=== PATIENT | female | born 1990 | race Hispanic/Latino ===

== ENCOUNTER → 2020-03-08 | Emergency (ER) | payer OTHER ==
[~2020-03-08] VITALS: Ht 152.4 cm; Wt 79.4 kg
[~2020-03-08] MED LIST: SODIUM CHLORIDE 0.9% 250ML 250 ML IV ONE; SODIUM CHLORIDE 0.9% 250ML 250 ML ONE
--- OUTSIDE RECORDS SUMMARY | 2020-03-08 16:48 | XMS REPORT | Clinical Summary ---
Author Author [facility] Organization 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 Active topiramate (TOPAMAX) 50 Take 2 60 tablet 6 mg tabletIndications: tablets by 4 Migraine, Headache(784.0) mouth at bedtime nightly. Active citalopram (CELEXA) 20 mg Take 1 tablet 90 tablet 1 tabletIndications: by mouth 4 Anxiety disorder daily. Active omeprazole (PRILOSEC) 20 Take 2 180 capsule 1 0 mg delayed release capsules by 4 capsuleIndications: mouth every Dyspepsia morning (before breakfast). Active naproxen (NAPROSYN) 500 Take 1 tablet 30 tablet 3 mg tabletIndications: by mouth 2 5 Migraine, Headache(784.0) times daily as needed for Pain or Fever. Active ergocalciferol (VITAMIN Take 1 12 capsule 1 D2) 50,000 unit capsule by 5 capsuleIndications: mouth weekly. Vitamin D deficiency Active methylPREDNISolone Follow 21 tablet 0 / 01 (MEDROL, NEW,) 4 mg dose directions 6 packIndications: from dose Arthralgia of multiple pack and/or joints instructions from . Active traMADol (ULTRAM) 50 mg Take 1 tablet 60 tablet 1 tabletIndications: by mouth 6 Arthralgia of multiple every 6 hours joints as needed for Pain. Active dexlansoprazole Take 1 30 capsule 1 (DEXILANT) 30 mg delayed capsule by 6 release mouth daily. capsuleIndications: Gastritis Active predniSONE (DELTASONE) 20 TAKE 2 10 tablet 0 01/10/201 mg tabletIndications: SLE TABLETS for 2 6 (systemic lupus days followed erythematosus) by 20 mg daily for 5 days and 5 mg for 5 days. Active predniSONE (DELTASONE) 5 Take 1 tablet 14 tablet 0 03/24/201 mg tabletIndications: ANSELMO by mouth 6 positive, Arthralgia of daily. multiple joints Active Problems Problem Noted Date Arthralgia of multiple joints 11/29/2015 Vitamin D deficiency 07/19/2015 Family History Medical History Relation Name Comments Cancer Maternal Uterine Cancer Grandmother Cancer Mother Breast Cancer Heart Mother Relation Name Status Comments Maternal Grandmother Alive Mother Alive Social History Date Tobacco Use Types Packs/Day Years Used Never Smoker Smokeless Tobacco: Never Used Comments: non smoker Drinks/Week oz/Week Comments Alcohol Use No Sex Assigned at Date Recorded Not on file Industry Job Start Date Occupation Not on file Not on file Not on file Travel End Travel History Travel Start No recent travel history available. Last Filed Vital Signs Not on file Plan of Treatment Health Maintenance Due Date Last Done Comments Cervical Cancer Scrn (3 04/07/2017 04/07/2014 Yrs) Results Not on fileafter 03/08/2019 Insurance Type Payer Benefit Subscriber ID Effective Phone Address Plan / Dates Group [email or web address] xxxxxxxxxx 2016-P [phone] [address] [place] [address]
--- OUTSIDE RECORDS SUMMARY | 2020-03-08 16:49 | XMS REPORT | Continuity of Care Document ---
Author Author [facility] t Organization [facility] Address [address] [place] [address] Phone Unavailable Care Team Providers Care Java Application Developer Name Role Phone Pcp, No PCP Unavailable ISRA CAMPBELL M.D. Attphys Unavailable Martín KELLEY, Mich Salomon Attphys Machelle KELLEY, Kwaku Perez Attphys Vivian KELLEY, Andi Celis Attphys 1.5, Avis Angel [facility] Attphys Unavailable ALEXIA PANDA M.D. Attphys Unavailable Payers Payer Name Policy Type Policy Number Effective Date Expiration Date S shirley VIDES MCR REPLACEMENTMOLINA DUAL OPTION S STARPLUS [id number] xxxxxxxxxx 2016 00:00:00 Armani Johnson [id number]-PresentExchange xxxxxxxxxxx 20 20-10-00 00:00:00 [facility] [facility] Problems Condition Name Condition Details Condition Category Status Onset Date Resolution Date Last Treatment Date Treating Clinician Comments Source Arthralgia of multiple joints Arthralgia of multiple joints Disease Active 2015-11-29 00:00:00 [place] mina Vitamin D deficiency Vitamin D deficiency Disease Active 00:00:00 [facility] Asthma Asthma Disease Active 2014-07-21 00:00:00 [facility] Atypical chest pain Atypical chest pain Disease Active 2014-07-21 00:00 :00 [facility] Campose r Left sided abdominal pain Left sided abdominal pain Disease Ac tive 2014-07-21 00:00:00 [facility] Syncope Syncope Disease Active 2014-07-20 00:00:00 [facility] History of asthma History of asthma Problem Resolved [facility] History of depression History of depression Problem Resolved [facility] History of hypertension History of hypertension Problem Resolved [facility] History of kidney disease History of kidney disease Problem Resolved [facility] History of Lupus History of Lupus Problem Resolved [facility] History of rheumatoid arthritis History of rheumatoid arthritis Problem Resolved [facility] Gastritis Gastritis Problem Active [facility] Esophagitis Esophagitis Problem Active [facility] Irritable bowel syndrome Irritable bowel syndrome Problem Active [facility] Acute left ankle pain Acute left ankle pain Problem Active [facility] Pelvic congestion syndrome Pelvic congestion syndrome Problem Active [facility] Allergies, Adverse Reactions, Alerts This patient has no known allergies or adverse reactions. Family History Family Member Diagnosis Comments Start Date Stop Date Source Mother Family history of diabetes mellitus [facility] Mother Family history of cardiac disorder [facility] Mother Family history of hypertension [facility] Father Family history of diabetes mellitus [facility] Father Family history of cardiac disorder [facility] Father Family history of hypertension [facility] Unknown Family Member Family history of colon cancer Maternal Relativ es [facility] aunt Family history of malignant neoplasm of cervix uteri [facility] Maternal grandmother [facility] Natural mother [facility] Natural mother Heart [facility] Social History Social Habit Start Date Stop Date Quantity Comments Source Exposure to SARS-CoV-2 (event) Not sure [facility] Sex Assigned [facility] Alcohol intake 2016-01-25 00:00:00 2016-01-25 00:00:00 [facility] Tobacco Comment 2014-06-08 00:00:00 2014-06-08 00:00:00 non smoker [facility] Smoking Status Start Date Stop Date Source Never smoker [facility] Medications Ordered Medication Name Filled Medication Name Start Date Stop Da te Current Medication? Ordering Clinician Indication Dosage Frequency Signature (SIG) Comments Components Source tacrolimus (PROGRAF) 1 MG capsule 2020-02-19 18:47:14 Yes 1mg Q.5D Take 1 mg by mouth 2 (two) times a day. Clement Johnson LISINOPRIL ORAL 2020-02-19 18:44:44 Yes Take by mouth. Armani Johnson ondansetron (ZOFRAN) 4 MG tablet 2020-02-19 00:00:00 Yes 4mg Q8H Take 1 tablet (4 mg total) by mouth every 8 (eight) hours as needed for nausea or vomiting for up to 20 doses. Armani hoffmann sucralfate (Carafate) 100 mg/mL suspension 02-18 00:00:00 2020-03-20 23:59:00 Yes 1g Q.25D Take 10 mL (1 g total) by mouth 4 (four) times a day for 30 days. Armani Johnson ondansetron (ZOFRAN) 4 MG tablet 2020-01-21 00:00:00 2020-01 00:00:00 No 4mg Q8H Take 1 tablet (4 mg total) by mouth every 8 (eight) hours as needed for nausea or vomiting for up to 20 doses. Mateus Johnson acetaminophen-codeine (TYLENOL WITH CODEINE #3) 300-30 mg pe r tablet 2020-01-21 00:00:00 2020-01-31 23:59:00 No acute pain 1{tbl} Q6H Take 1-2 tablets by mouth every 6 (six) hours as needed for moderate pain for up to 10 days .acute pain. Armani Johnson cefuroxime (CEFTIN) 500 MG tablet 2020-01-21 00:00:00 2019 23:59:00 No 500mg Q.5D Take 1 tablet (5 00 mg total) by mouth 2 (two) times a day for 6 days. Armani Johnson hydroxychloroquine (Plaquenil) 200 mg tablet 2018-12-26 00:00:00 Yes Take by mouth. Armani cheney predniSONE (DELTASONE) 5 mg tablet 2016-03-24 00:00:00 Yes Arthralgia of multiple joints 5mg QD Take 1 tablet by mouth daily. [facility] predniSONE (DELTASONE) 20 mg tablet 2016-01-11 00:00:00 Yes SLE (systemic lupus erythematosus) TAKE 2 TABLETS for 2 days followed by 20 mg daily for 5 days and 5 mg for 5 days. [facility] dexlansoprazole (DEXILANT) 30 mg delayed release capsule 2015-12-27 00:00:00 Yes Gastritis 30mg QD Take 1 capsule by mouth daily. [facility] methylPREDNISolone (MEDROL DOSEPAK) 4 mg tablet 2015-11-29 00:00 :00 Yes Follow directions from dose pack and/or instructions f mojgan RAPHAEL. [place] [facility] methylPREDNISolone (MEDROL, NEW,) 4 mg dose pack 2015-11-29 00:00:00 Yes Arthralgia of multiple joints Follow dir ections from dose pack and/or instructions from . [facility] traMADol (ULTRAM) 50 mg tablet 2015-11-29 00:00:00 Yes Arthralgia of multiple joints 50mg Take 1 tablet by mouth every 6 h ours as needed for Pain. [facility] ergocalciferol (VITAMIN D2) 50,000 unit capsule 2015-07-19 0 0:00:00 Yes Vitamin D deficiency 62721F Take 1 capsule by mouth weekly. [facility] naproxen (NAPROSYN) 500 mg tablet 2015-06-28 00:00:00 Ye s Headache(784.0) 500mg Take 1 tablet by mouth 2 times daily as needed for Kristian n or Fever. [facility] omeprazole (PRILOSEC) 20 mg delayed release capsule 06-08 00:00:00 Yes Dyspepsia 40mg QD Take 2 capsules by mouth every morni ng (before breakfast). [facility] citalopram (CELEXA) 20 mg tablet 2014-01-23 00:00:00 Yes Anxiety disorder 20mg QD Take 1 tablet by mouth daily. [facility] topiramate (TOPAMAX) 50 mg tablet 2013-12-30 00:00:00 Ye s Headache(784.0) 100mg Take 2 tablets by mouth at bedtime nightly. [facility] ALBUTEROL IN 2013-12-12 06:01:27 Yes Inhale by mouth. [facility] predniSONE 10 MG Oral Tablet predniSONE 10 MG Oral Tablet Yes [facility] Plaquenil 200 MG Oral Tablet Plaquenil 200 MG Oral Tablet Yes [facility] Tylenol CAPS Tylenol CAPS Yes [facility] Tacrolimus 1 MG Oral Capsule Tacrolimus 1 MG Oral Capsule Yes [facility] Omeprazole 40 MG Oral Capsule Delayed Release Omeprazo le 40 MG Oral Capsule Delayed Release Yes [facility] Lisinopril TABS Lisinopril TABS Yes [facility] Immunizations Ordered Immunization Name Filled Immunization Name Date Status Comments Source Influenza TIV (IM) 2014-07-21 00:00:00 Completed [facility] Vital Signs Vital Name Observation Time Observation Value Comments Source Systolic blood pressure 2020-02-27 10:55:00 143 mm[Hg] Loca tion: RUE; Position: Sitting [facility] Diastolic blood pressure 2020-02-27 10:55:00 95 mm[Hg] Loc ation: RUE; Position: Sitting [facility] Body height 2020-02-27 10:55:00 61 [in_us] [facility] Weight 2020-02-27 10:55:00 174 [lb_av] [facility] Body mass index (BMI) [Ratio] 2020-02-27 10:55:00 32.88 kg/m2 [facility] Body temperature 2020-02-27 10:55:00 97.6 [degF] Method: Oral [facility] Heart Rate 2020-02-27 10:55:00 121 /min [facility] Systolic blood pressure 2020-02-19 23:00:00 118 mm[Hg] Armani Glassist Diastolic blood pressure 2020-02-19 23:00:00 72 mm[Hg] Armani Glassist Heart rate 2020-02-19 23:00:00 97 /min Armani Glassist Respiratory rate 2020-02-19 23:00:00 15 /min Brooke Johnson Oxygen saturation in Arterial blood by Pulse oximetry 02-18 23:00:00 99 /min Armani Glassist Body temperature 2020-02-19 18:10:00 36.56 Maria Elena [facility] BP Systolic 2019-02-20 16:23:00 129 mm[Hg] [facility] BP Diastolic 2019-02-20 16:23:00 88 mm[Hg] [facility] Height 2019-02-20 16:23:00 61 [in_us] [facility] Weight 2019-02-20 16:23:00 170 [lb_av] [facility] Body Mass Index Calculated 2019-02-20 16:23:00 32.12 kg/m2 [facility] Temperature 2019-02-20 16:23:00 98.5 [degF] [facility] Heart Rate 2019-02-20 16:23:00 112 /min [facility] Respiration Rate 2019-02-20 16:23:00 18 /min [facility] Procedures Procedure Date / Time Performed Performing Clinician Sourc e US GALLBLADDER 2020-02-19 22:40:15 Zev Rosado OCCULT BLOOD, STOOL 2020-02-19 19:48:00 Zev Rosado [facility] URINE CULTURE 2020-02-19 19:48:00 Zev Rosado URINALYSIS SCREEN AND MICROSCOPY, WITH REFLEX TO CULTURE 19:48:00 Zev Rosado HC COMPLETE BLD COUNT W/AUTO DIFF 2020-02-19 18:57:00 Cristi Rosado COMPREHENSIVE METABOLIC PANEL 2020-02-19 18:57:00 Zev Rosado LIPASE LEVEL 2020-02-19 18:57:00 Zev Rosado HCG QUALITATIVE, SERUM SCREEN 2020-02-19 18:57:00 Zev Rosado TYPE AND SCREEN 2020-02-19 18:57:00 Zev Rosado ESTIMATED GFR 2020-02-19 18:57:[address] RENAL STONE PROTOCOL 2020-01-21 17:47:52 Chris Carty URINE CULTURE 2020-01-21 17:37:00 Chris Carty ethodist HC COMPLETE BLD COUNT W/AUTO DIFF 2020-01-21 17:28:00 Tonie Carty COMPREHENSIVE METABOLIC PANEL 2020-01-21 17:28:00 Geovanni Carty LIPASE LEVEL 2020-01-21 17:28:00 Chris Carty ethodist ESTIMATED GFR 2020-01-21 17:28:00 Chris Carty ethodist SMEAR REVIEW 2020-01-21 17:28:00 Chris Carty ethodist URINALYSIS 2020-01-21 17:13:00 Chris Carty ethodist HCG QUALITATIVE, URINE SCREEN 2020-01-21 17:13:00 Geovanni Carty MR BRAIN WITH & WITHOUT IV CONTRAST 2019-03-31 19:09:00 Vimal Stout [facility] [U] XRAY ANKLE MIN 3 VWS LEFT [id number] 2019-03-07 00:00:00 [facility] [U] XRAY FOOT MIN 3 VWS LEFT [id number] 2019-02-19 00:00:00 [facility] History of section [facility] History of Kidney surgery [facility] Plan of Care Planned Activity Planned Date Details Comments Source Future Scheduled Test 2020-05-01 00:00:00 INFLUENZA VACCINE [code = INFLUENZA VACCINE] [facility] Future Scheduled Test 2017-04-07 00:00:00 Cervical Cancer Sc rn (3 Yrs) [code = Cervical Cancer Scrn (3 Yrs)] [facility] Future Scheduled Test 2012-02-10 00:00:00 Screening for merlin gnant neoplasm of cervix (procedure) [code = 082916949] [facility] En[facility] Start Date/Time End Date/Time Encounter Type Admission Type [facility] Care Department Encounter ID Source 2020-02-27 10:30:00 2020-02-27 10:30:00 Appointment; ISRA CAMPBELL M .D. KATZ, ALLAN, M.D. [facility] [id number] [facility] 2020-02-21 12:16:00 2020-02-21 12:16:00 Emergency E BL [facility] [id number] BL 2020-02-19 00:00:00 2020-02-19 00:00:00 Emergency ALEXIA HAWLEY [facility] [id number] Armani Johnson 2020-01-21 00:00:00 2020-01-21 00:00:00 Emergency MACHELLEGEOVANNI Hari [facility] [id number] Armani Johnson 2019-07-01 07:23:00 2019-07-01 07:23:00 Outpatient [facility] [id number] [facility] 2019-03-11 16:30:00 2019-03-11 16:30:00 Appointment; STEFANIE PANDA M.D. HARVIN, WILLIAM, M.D. [facility] Orthopedics [facility] [id number] [facility] 2019-02-20 15:45:00 2019-02-20 15:45:00 Appointment; STEFANIE PANDA M.D. HARVIN, WILLIAM, M.D. [facility] Orthopedic [id number] [facility] 2019-02-05 12:50:00 2019-02-05 12:50:00 Emergency E [facility] [id number] [facility] Results Test Description Test Time Test Comments Results Result Comments Source US Gallbladder 2020-02-19 22:43:02 Interface , Radiology Results 02/19/2020 10:46 PM CDTEXAMINATION: US GALLBLADDERCLINICAL HISTORY: Epigastric painCOMPARISON: None.FINDINGS:Gallbladder: The gallbladder is without evidence of calculi. The gallbladder wall is not thickened and there is no pericholecystic fluid.CBD: 3 mm diameter , within normal limits.Portal vein: The portal vein demonstrates normal hepatopedal flow. The portal vein measures 9 mm diameter.IMPRESSION:Normal gallbladder ultrasound examination.[facility]-[id number] [facility] Urine culture 2020-02-19 20:22:15 Test Item Urine culture (test code = 6400293) SEE COMMENT Bacteriuria screen negative. [place] MethodistUrinalysis screen and microscopy, with reflex to culture 2020-02-19 20:22:14* Test Item Value Reference Range Interpretation Comments Specimen site (test code = 8936108) Clean catch Color, UA (test code = 5778-6) Yellow Appearance, UA (test code = 5767-9) Clear Specific gravity, UA (test code = 5811-5) 1.023 1.001-1.030 pH, UA (test code = 5803-2) 6.0 5.0-9.0 Protein, UA (test code = 73416-7) 2+ Negative A Glucose, UA (test code = 71689-3) Negative Negative Ketones, UA (test code = 2514-8) Negative Negative Bilirubin, UA (test code = 5770-3) Negative Negative Blood, UA (test code = 5794-3) Negative Negative Nitrite, UA (test code = 5802-4) Negative Negative Urobilinogen, UA (test code = 62904-5) <2.0 <2.0 E.U./dL Leukocyte esterase, UA (test code = 5799-2) Negative Negative Epithelial cells, UA (test code = 5787-7) 4 /HPF WBC, UA (test code = 5821-4) 3 0- 4 /HPF RBC, UA (test code = 34641-5) 3 0- 5 /HPF Bacteria, UA (test code = 57418-1) Few None seen Yeast, UA (test code = 51656-7) None seen Yeast with pseudohyphae, UA (test code = 02804-2) None seen Lab Interpretation (test code = 38319-7) Abnormal [facility] MethodistOccult blood, [id number] 20:20:46* Test Item Value Reference Range Interpretation Comments Occult blood, stool (test code = 2334-1) Negative for occult blood. Specimen InformationSpecimen Source: StoolSpecimen Site: Nonpreserved [place] MethodistType and [id number] 20:03:00* Test Item Value Reference Range Interpretation Comments ABO grouping (test code = 883-9) A Rh type (test code = 86986-1) POS Antibody screen (gel) (test code = 890-4) NEG [facility] MethodistComprehensive metabolic [id number] 19:45:02* Test Item Value Reference Range Interpretation Comments Sodium (test code = 2951-2) 137 135- 148 mEq/L Potassium (test code = 2823-3) 4.1 3.5- 5.0 mEq/L Chloride (test code = 2075-0) 106 98- 112 mEq/L CO2 (test code = 8-9) 21 24- 31 mEq/L L Anion gap (test code = 40104-9) 10@ANIO 7- 15 mEq/L BUN (test code = 3094-0) 16 mg/dL 6-20 Creatinine (test code = 2160-0) 0.71 mg/dL 0.5-0.9 Glucose (test code = 2345-7) 97 mg/dL 65-99 Calcium (test code = 41983-1) 9.2 mg/dL 8.3-10.2 Protein (test code = 2885-2) 7.2 g/dL 6.3-8.3 Albumin (test code = 1751-7) 4.1 g/dL 3.5-5 A/G ratio (test code = 1759-0) 1.3 0.7-3.8 Alkaline phosphatase (test code = 6768-6) 50 U/L 35-104 AST (test code = 1920-8) 19 U/L 10-35 ALT (test code = 1742-6) 14 U/L 5-50 Total bilirubin (test code = 1974-2) <0.2 0.2-1.2 Lab Interpretation (test code = 39669-5) Abnormal [place] MethodistLipase [id number] 19:45:02* Test Item Value Reference Range Interpretation Comments Lipase (test code = 3040-3) 114 U/L 13-60 H Lab Interpretation (test code = 05257-0) Abnormal [place] MethodistEstimated [id number] 19:45:02* Test Item Value Reference Range Interpretation Comments Estimated GFR (test code = 5488) >=90 mL/min/1.73 m2 Catergory Units InterpretationG1 >=90 Normal or highG2 60-89 Mildly rbdpatjppY5x 45-59 Mildly to moderately kpggcqslzF2w 30-44 Moderately to severely decreasedG4 15-29 Severely decreasedG5 <15 Kidney failureThe eGFR was calculated using the Chronic Kidney Disease Epidemiology Collaboration (CKD-EPI) equation. Interpretation is based on recommendations of the National Kidney Foundation-Kidney Disease Outcomes Quality Initiative (NKF-KDOQI) published in 2014. [facility] MethodisthCG qualitative, serum [id number] 19:21:33* Test Item Value Reference Range Interpretation Comments hCG qualitative, serum (test code = 2118-8) Negative Sensitivity of HCG test: 25 mIU/mL [place] MethodistCBC with platelet and [id number] 19:10:52* Test Item Value Reference Range Interpretation Comments WBC (test code = 19055-9) 11.4 4.5- 11.0 k/uL H RBC (test code = 85258-8) 4.86 m/uL 4.2-5.5 HGB (test code = 718-7) 8.5 g/dL 12-16 L HCT (test code = 4544-3) 30.9 % 37-47 L MCV (test code = 787-2) 63.6 fL 82-100 L MCH (test code = 785-6) 17.5 pg 27-34 L MCHC (test code = 786-4) 27.5 g/dL 31-37 L RDW - SD (test code = 36984-3) 42.6 fL 37-55 MPV (test code = 79710-6) 8.1 fL 6.9-11 Platelet count (test code = 18680-8) 526 K/uL 150-400 H Nucleated RBC (test code = 20949-8) 0.00 /100 WBC Neutrophils (test code = 12371-4) 82.4 % 39-69 H Lymphocytes (test code = 15916-7) 10.3 % 25-45 L Monocytes (test code = 00301-1) 5.7 % 0-10 Eosinophils (test code = 78700-5) 0.4 % 0-5 Basophils (test code = 13176-7) 0.4 % 0-1 Immature granulocytes (test code = 19255-2) 0.8 % 0-1 Lab Interpretation (test code = 70016-0) Abnormal [place] MethodistSmear [id number] 21:40:14* Test Item Value Reference Range Interpretation Comments Platelet slide review (test code = 36217-8) Increased A Anisocytosis (test code = 702-1) Moderate Polychromasia (test code = 47212-9) Moderate Ovalocytes (test code = 774-0) Moderate Enlarged platelets (test code = 38186-3) Moderate A Lab Interpretation (test code = 81814-3) Abnormal [facility] MethodistCT Renal Stone [id number] 17:53:27Hm Interface, Radiology Results - 01/21/2020 5:56 PM CDTEXAMINATION: CT RENAL STONE PROTOCOLCLINICAL HISTORY: left flank painTECHNIQUE: Multiple axial images of the abdomen were obtained without intravenous contrast with thin sections per renal stone protocol. Sagittal and coronal computerized reformatted images were also obtained. All CT images were acquired using radiation dose lowering technique with automated exposure control and / or iterative reconstruction .COMPARISON: NoIMPRESSION:ABDOMENEvaluation of solid abdominal organs is limite d without IV contrast as this examination was tailored for evaluation of urinary tract calculi.1.Nonobstructive left nephrolithiasis. No other urinary tract lit hiasis, and no obstructive uropathy on either side.2.Mild left renal edema and e nlargement and perinephric stranding, which may indicate a recently passed stone or pyelonephritis. Kidneys otherwise grossly unremarkable without contrast.3.Ga llbladder contracted and not well seen.4.No other incidental findings are detect edPELVIS1.Mild midline abdominal wall diastasis. No free fluid or definite lymph adenopathy detected in the abdomen or pelvis on this limited noncontrast study.2 .Uterus, adnexa and urinary bladder grossly unremarkable.3.Bowel loops grossly u nremarkable without contrast.SUMMARY:Appearance of the left kidney may indicate recently passed stone or pyelonephritis.[facility]-[id number] [facility] qualitative, urine [id number] 17:28:04* Test Item Value Reference Range Interpretation Comments hCG qualitative, urine (test code = 2106-3) Negative Sensitivity of HCG test: 25 mIU/mLNegative test results in patients suspected to be should be retested with a sample obtained 48-72 hours later, or by performing a quantitative assay. [place] [id number] 17:21:35* Test Item Value Reference Range Interpretation Comments Glucose, UA (test code = 36768-1) Negative Negative Bilirubin, UA (test code = 5770-3) Negative Negative Ketones, UA (test code = 2514-8) Negative Negative Specific gravity, UA (test code = 5811-5) =>1.030 1.001-1.035 Blood, UA (test code = 5794-3) Small Negative A pH, UA (test code = 5803-2) 7.0 5.0-8.5 Protein, UA (test code = 96288-6) 3+ Negative A Urobilinogen, UA (test code = 41358-8) <2.0 <2.0 Nitrite, UA (test code = 5802-4) Negative Negative Leukocyte esterase, UA (test code = 5799-2) Small Negative A Color, UA (test code = 5778-6) Yellow Appearance, UA (test code = 5767-9) Sl Cloudy Lab Interpretation (test code = 96506-7) Abnormal [facility], BRAIN, WITHOUT / WITH IV [id number] 07:17:00FINAL REPORT EXAMINATION: MRI of the brain HISTORY:Chronic intractable headacheCOMPARISON: None availableTECHNIQUE:Sagittal T2; axial DWI, FLAIR, T1-IR, SWI; coronal FLAIR. Sagittal T1 ultrathin slice 3D CUBE with co gwen and axial reformations.Intravenous contrast: 8 mL Gadavist FINDINGS: Brain signal intensity: 1.No abnormal signal intensity. No abnormal enhancement .2.No mass or hemorrhage. No evidence of acute territorial vascular insult. Brain stem: Normal Vessels: Expected flow voids present in the major arter ies and dural sinuses. Brain volume: Within normal limits for age. Ventr icles: Normal size, shape, and position. Craniocervical junction: Normal. Paranasal and mastoid sinuses: Clear Bones: Normal Sella turcica: No d efinite sellar or suprasellar mass IMPRESSION: No intracranial abnormalities. Si gned: Vivien Everetteport Verified Date/Time: 04/02/2019 07:17:27 El ectronically signed by: VIVIEN EVERETT on 04/02/2019 07:17 AM MR brain without & with IV [id number] 07:17:00Interface, External Ris In - 04/02/2019 7:19 AM CDTFINAL REPORT EXAMINATION: MRI of the brain HISTORY:Chronic intractable headacheCOMPARISON: None availableTECHNIQUE:Sagittal T2; axial DWI, FLAIR, T1-IR, SWI; coronal FLAIR. Sagittal T1 ultrathin slice 3D CUBE with coronal and axial reformations.Intravenous contrast: 8 mL Gadavist FINDINGS: Brain signal intensity: 1.No abnormal signal intensity. No abnormal enhancement.2.No mass or hemorrhage. No evidence of acute territorial vascular insult. Brain stem: Normal Vessels: Expected flow voids present in the major arteries and dural sinuses. Brain volume: Within normal limits for age. Ventricles: Normal size, shape, and position. Craniocervical junction: Normal. Paranasal and mastoid sinuses: Clear Bones: Normal Sella turcica: No definite sellar or suprasellar mass IMPRESSION: No intracranial abnormalities. Signed: Vivien Everetteport Verified Date/Time: 04/02/2019 07:17:27 [facility][U] XRAY FOOT MIN 3 VWS LEFT [id number] 15:51:00Images acquired, not reported on this accession number.[facility]
--- OUTSIDE RECORDS SUMMARY | 2020-03-08 16:49 | XMS REPORT | Summary of Care ---
Author Author JUAN Cam Organization Unknown Address Unknown Phone Unavailable Care Team Providers Care Director Loss Prevention Name Role Phone ARGELIA HOPE M.D. Unavailable Unavailable Chase Cam Unavailable Unavailable NORMA KELLEY, PARI Unavailable Unavailable [facility] Unavailable Martir PANDA MD [place], ALEXIA Unavailable Unavailable Functional Status Name Dates Details Functional status health issues are not documented Status: Name Dates Details Cognitive status health issues are not d ocumented Status: Problems Name Dates Details Gastritis (535.50, K29.70) Status: Active Esophagitis (530.10, K20.9) Status: Active Irritable bowel syndrome (564.1, K58.9) Status: Active Irritable bowel syndrome (564.1, K58.9) Status: Active Irritable bowel syndrome (564.1, K58.9) Status: Active Acute left ankle pain (719.47, M25.572) Status: Active Medications Name Dates Details Prevacid 30 MG Oral Capsule Delayed Rele ase TAKE 1 CAPSULE EVERY MORNING DAILY. Quantity: 30 ARGELIA HOPE M.D. * Start : 01-Dec-2005 Active Dicyclomine HCl - 10 MG Oral Capsule TAKE 1 CAPSULE EVERY 4-6 HOURS PRN pain * Quantity: 60 Refills: 0 ARGELIA HOPE M.D. * Start : 17-Aug-2006 Active predniSONE 10 MG Oral Tablet * Refills: 0 Active Plaquenil 200 MG Oral Tablet * Refills: 0 Active CellCept 500 MG Oral Tablet * Refills: 0 Active Tylenol CAPS * Refills: 0 Active Allergies and Adverse Reactions Name Dates Details No Known Allergies (Allergy) Status: Act damaso Past Medical History Name Dates Details History of asthma (V12.69, Z87.09) Status: Resolved History of depression (V11.8, Z86.59) Status: Resolved History of hypertension (V12.59, Z86.79) Status: Resolved History of kidney disease (V13.09, Z87.4 48) Status: Resolved History of Lupus (710.0, M32.9) Status: Resolved History of rheumatoid arthritis (V13.4, Z87.39) Status: Resolved Procedures Procedure Dates Details History of section Completed History of Kidney surgery Completed Immunization Name Dates Details Immunizations not documented Family History Name Dates Details Family history of diabetes mellitus (V18 .0, Z83.3) Status: Active Family history of cardiac disorder (V17. 49, Z82.49) Status: Active Family history of hypertension (V17.49, Z82.49) Status: Active Name Dates Details Family history of diabetes mellitus (V18 .0, Z83.3) Status: Active Family history of cardiac disorder (V17. 49, Z82.49) Status: Active Family history of hypertension (V17.49, Z82.49) Status: Active Social History Name Dates Details Unknown if ever smoked Vital Signs Date Test Result Details [id number] BP Systolic 129 mm[Hg] Status: BP Diastolic 88 mm[Hg] Status: Height 61 in Status: Weight 170 lb Status: Body Mass Index Calculated 32.12 kg/m2 Status: Body Surface Area Calculated 1.76 m2 Status: Temperature 98.5 f Status: Heart Rate 112 /min Status: Respiration Rate 18 /min Status: Results Date Description Value Details [id number] [U] XRAY FOOT MIN 3 VWS LEFT [id number] XR FOOT MIN 3 VWS LEFT Images acquired, not reported on this accession number. Plan of Care Name Dates Details Planned Observations Planned Goals not documented Instructions Name Dates Details Instructions not documented Encounters Appointment; ALEXIA PANDA M.D. Encounter Diagnosis: Problem not documented On: 20-Feb-2019 15:45 Appointment; ALEXIA PANDA M.D. Encounter Diagnosis: Problem not documented On: 11-Mar-2019 16:30
--- OUTSIDE RECORDS SUMMARY | 2020-03-08 16:49 | XMS REPORT | Clinical Summary ---
Author Author [employer] Organization [employer] Address Unknown Phone Unavailable Care Team Providers Care Director Business Travel Name Role Phone Jamari Bush MD PCP Allergies No Known Allergies Medications End Date Status Medication Sig Dispensed Refills Start Date Active methylPREDNISolone Follow 0 (MEDROL DOSEPAK) 4 mg directions 6 tablet from dose pack and/or instructions from MD.. Active LISINOPRIL ORAL Take by 0 mouth. Active hydroxychloroquine Take by 0 (Plaquenil) 200 mg tablet mouth. 9 Active tacrolimus (PROGRAF) 1 MG Take 1 mg by 0 capsule mouth 2 (two) times a day. 03/20/2020 Active sucralfate (Carafate) 100 Take 10 mL (1 1200 mL 0 mg/mL suspension g total) by 0 mouth 4 (four) times a day for 30 days. Active ondansetron (ZOFRAN) 4 MG Take 1 tablet 20 tablet 0 tablet (4 mg total) 0 by mouth every 8 (eight) hours as needed for nausea or vomiting for up to 20 doses. 01/27/2020 cefuroxime (CEFTIN) 500 Take 1 tablet 12 tablet 0 MG tablet (500 mg 0 total) by mouth 2 (two) times a day for 6 days. 01/31/2020 acetaminophen-codeine Take 1-2 20 tablet 0 12/31 (TYLENOL WITH CODEINE #3) tablets by 0 300-30 mg per mouth every 6 tabletIndications: acute (six) hours pain as needed for moderate pain for up to 10 days .acute pain. 02/19/2020 Discontinued (Reorder) ondansetron (ZOFRAN) 4 MG Take 1 tablet 20 tablet 0 tablet (4 mg total) 0 by mouth every 8 (eight) hours as needed for nausea or vomiting for up to 20 doses. Active Problems Not on file Encounters Care Team Description Date Type Specialty Aime Resendiz MD Epigastric pain (Primary Dx); Anemia, unspecified type 02/19/2020 Emergency Emergency Medicine 02/19/2020 Travel Chris Carty MD Pyelonephritis (Primary Dx); Kidney stone on left side 01/21/2020 Emergency Emergency Medicine 01/21/2020 Travel after 03/08/2019 Social History Date Tobacco Use Types Packs/Day Years Used Never Smoker Smokeless Tobacco: Never Used Drinks/Week oz/Week Comments Alcohol Use Not Currently Sex Assigned at Date Recorded Not on file Industry Job Start Date Occupation Not on file Not on file Not on file Travel End Travel History Travel Start No recent travel history available. Date Recorded COVID-19 Exposure Response 02/19/2020 8:05 PM CDT In the last month, have you been in contact with No / Unsure someone who was confirmed or suspected to have Coronavirus / COVID-19? Last Filed Vital Signs Reading Time Taken Comments Vital Sign 118/72 02/19/2020 11:00 PM CDT Blood Pressure 97 02/19/2020 11:00 PM CDT Pulse 36.6 C (97.8 F) 02/19/2020 6:10 PM CDT Temperature 15 02/19/2020 11:00 PM CDT Respiratory Rate 99% 02/19/2020 11:00 PM CDT Oxygen Saturation - - Inhaled Oxygen Concentration - - Weight - - Height - - Body Mass Index Plan of Treatment Health Maintenance Due Date Last Done Comments CERVICAL CANCER SCREENING 02/10/2012 INFLUENZA VACCINE 05/01/2020 Procedures Comments Procedure Name Priority Date/Time Associated Diag nosis US GALLBLADDER STAT 02/19/2020 10:40 PM CDT URINALYSIS SCREEN AND STAT 02/19/2020 MICROSCOPY, WITH REFLEX 7:48 PM CDT TO CULTURE URINE CULTURE STAT 02/19/2020 7:48 PM CDT OCCULT BLOOD, STOOL Routine 02/19/2020 7:48 PM CDT ESTIMATED GFR STAT 02/19/2020 6:57 PM CDT TYPE AND SCREEN Routine 02/19/2020 6:57 PM CDT HCG QUALITATIVE, SERUM STAT 02/19/2020 SCREEN 6:57 PM CDT LIPASE LEVEL STAT 02/19/2020 6:57 PM CDT COMPREHENSIVE METABOLIC STAT 02/19/2020 PANEL 6:57 PM CDT HC COMPLETE BLD COUNT STAT 02/19/2020 W/AUTO DIFF 6:[address] RENAL STONE PROTOCOL STAT 01/21/2020 5:47 PM CDT URINE CULTURE Routine 01/21/2020 5:37 PM CDT SMEAR REVIEW STAT 01/21/2020 5:28 PM CDT ESTIMATED GFR STAT 01/21/2020 5:28 PM CDT LIPASE LEVEL STAT 01/21/2020 5:28 PM CDT COMPREHENSIVE METABOLIC STAT 01/21/2020 PANEL 5:28 PM CDT HC COMPLETE BLD COUNT STAT 01/21/2020 W/AUTO DIFF 5:28 PM CDT HCG QUALITATIVE, URINE STAT 01/21/2020 SCREEN 5:13 PM CDT URINALYSIS STAT 01/21/2020 5:13 PM CDT after 03/08/2019 Results * US Gallbladder (02/19/2020 10:40 PM CDT) Specimen Narrative Performed At EXAMINATION: US GALLBLADDER [facility] CLINICAL HISTORY: Epigastric pain COMPARISON: None. FINDINGS: Gallbladder: The gallbladder is without evidence of calculi. The gallbladder wall is not thickened and there is no p ericholecystic fluid. CBD: 3 mm diameter , within normal li mits. Portal vein: The portal vein demonstrat es normal hepatopedal flow. The portal vein measures 9 mm diameter. IMPRESSION: Normal gallbladder ultrasound examinati on. [id number] Procedure Note Hm Interface, Radiology Results Incoming - 02/19/2020 10:46 PM CDT EXAMINATION: US GALLBLADDER CLINICAL HISTORY: Epigastric pain COMPARISON: None. FINDINGS: Gallbladder: The gallbladder is without evidence of calculi. The gallbladder wall is not thickened and there is no pericholecystic fluid. CBD: 3 mm diameter , within normal limits. Portal vein: The portal vein demonstrates normal hepatopedal flow. The portal vein measures 9 mm diameter. IMPRESSION: Normal gallbladder ultrasound examination. [facility]-[id number] Performing Organization Address City/[facility] Ph one Number [facility] [address] [place] [address] * Urinalysis screen and microscopy, with reflex to culture (02/19/2020 7:48 PM CDT) Specimen site Clean catch [facility] Color, UA Yellow [facility] Appearance, UA Clear [facility] Specific 1.023 1.001 - 1.030 [facility] gravity, UA [facility] pH, UA 6.0 5.0 - 9.0 [facility] Protein, UA 2+ (A) Negative [facility] Glucose, UA Negative Negative [facility] Ketones, UA Negative Negative [facility] Bilirubin, UA Negative Negative [facility] Blood, UA Negative Negative [facility] Nitrite, UA Negative Negative [facility] Urobilinogen, <2.0 <2.0 E.U./dL [facility] Leukocyte Negative Negative [facility] esterase, [facility] Epithelial 4 /HPF [facility] cells, UA [facility] WBC, UA 3 0 - 4 /HPF [facility] RBC, UA 3 0 - 5 /HPF [facility] Bacteria, UA Few None seen [facility] Yeast, UA None seen [facility] Yeast with None seen [facility] pseudohyphae, [facility] Specimen Urine Performing Organization Address City/[facility] Ph one [place] [address] [place], [place] [address] PATHOLOGY AND GENOMIC MEDICINE [facility] [address] [place], [place] [id number] [place] [address] * Occult blood, stool (02/19/2020 7:48 PM CDT) Occult blood, Negative for occult blood. [facility] stool Comment: AMISH [facility] Specimen Source: Stool Specimen Site: Nonpreserved Specimen Stool - Nonpreserved Performing Organization Address [facility] one Number [facility] DEPARTMENT OF [address] [place] [address] PATHOLOGY AND GENOMIC MEDICINE [address] * Urine culture (02/19/2020 7:48 PM CDT) Only the most recent of 2 results within the time period is included. Urine culture SEE COMMENTComment: [facility] Bacteriuria screen negative. [facility] Specimen Performing Organization Address [facility] one Number [facility] DEPARTMENT OF [address] [place] [address] PATHOLOGY AND GENOMIC MEDICINE [address] * Estimated GFR (02/19/2020 6:57 PM CDT) Only the most recent of 2 results within the time period is included. Estimated GFR >=90 mL/min/1.73 m2 [facility] Comment: [facility] Interpretation G1 >=90 Normal or high G2 60-89 Mildly decreased G3a 45-59 Mildly to moderately decreased G3b 30-44 Moderately to severely decreased G4 15-29 Severely decreased G5 <15 Kidney failure The eGFR was calculated using the Chronic Kidney Disease Epidemiology Collaboration (CKD-EPI) equation. Interpretation is based on recommendations of the National Kidney Foundation-Kidney Disease Outcomes Quality Initiative (NKF-KDOQI) published in 2014. Specimen Performing Organization Address City/[facility] one Number [facility] DEPARTMENT OF [address] [place] [address] PATHOLOGY AND GENOMIC MEDICINE [address] * CBC with platelet and differential (02/19/2020 6:57 PM CDT) Only the most recent of 2 results within the time period is included. WBC 11.4 (H) 4.5 - 11.0 k/uL [facility] RBC 4.86 4.20 - 5.50 m/uL [facility] HGB 8.5 (L) 12.0 - 16.0 g/dL [facility] HCT 30.9 (L) 37.0 - 47.0 % [facility] MCV 63.6 (L) 82.0 - 100.0 fL [facility] MCH 17.5 (L) 27.0 - 34.0 pg [facility] MCHC 27.5 (L) 31.0 - 37.0 g/dL [facility] RDW - SD 42.6 37.0 - 55.0 fL [facility] MPV 8.1 6.9 - 11.0 fL [facility] Platelet count 526 (H) 150 - 400 K/uL [facility] Nucleated RBC 0.00 /100 WBC [facility] Neutrophils 82.4 (H) 39.0 - 69.0 % [facility] Lymphocytes 10.3 (L) 25.0 - 45.0 % [facility] Monocytes 5.7 0.0 - 10.0 % [facility] Eosinophils 0.4 0.0 - 5.0 % [facility] Basophils 0.4 0.0 - 1.0 % [facility] Immature 0.8 0.0 - 1.0 % [facility] granulocytes [facility] Specimen Blood Performing Organization Address City/[facility] Ph one Number [place] [phone] PATHOLOGY AND GENOMIC MEDICINE [address] * Type and screen (02/19/2020 6:57 PM CDT) ABO grouping A [facility] Rh type POS [facility] Antibody screen NEG [facility] (gel) [facility] Specimen Blood Performing Organization Address City/[facility] Ph one Number [place] [phone] PATHOLOGY AND GENOMIC MEDICINE [address] * hCG qualitative, serum screen (02/19/2020 6:57 PM CDT) [facility] hCG NegativeComment: Sensitivity [facility] qualitative, of HCG test: 25 mIU/mL [facility] Specimen Blood Performing Organization Address City/[facility] Ph one Number [facility] DEPARTMENT OF [address] [place] [address] PATHOLOGY AND [facility] MEDICINE [address] * Lipase level (02/19/2020 6:57 PM CDT) Only the most recent of 2 results within the time period is included. [facility] Lipase 114 (H) 13 - 60 U/L [facility] Specimen Blood Performing Organization Address City/[facility] Ph one Number [facility] DEPARTMENT [place] [address] PATHOLOGY AND [address] * Comprehensive metabolic panel (02/19/2020 6:57 PM CDT) Only the most recent of 2 results within the time period is included. [facility] Sodium 137 135 - 148 mEq/L [facility] Potassium 4.1 3.5 - 5.0 mEq/L [facility] Chloride 106 98 - 112 mEq/L [facility] CO2 21 (L) 24 - 31 mEq/L [facility] Anion gap 10@ANIO 7 - 15 mEq/L [facility] BUN 16 6 - 20 mg/dL [facility] Creatinine 0.71 0.50 - 0.90 mg/dL [facility] Glucose 97 65 - 99 mg/dL [facility] Calcium 9.2 8.3 - 10.2 mg/dL [facility] Protein 7.2 6.3 - 8.3 g/dL [facility] Albumin 4.1 3.5 - 5.0 g/dL [facility] A/G ratio 1.3 0.7 - 3.8 [facility] Alkaline 50 35 - 104 U/L [facility] phosphatase [facility] AST 19 10 - 35 U/L [facility] ALT 14 5 - 50 U/L [facility] Total bilirubin <0.2 0.2 - 1.2 mg/dL [facility] Specimen Blood Performing Organization Address City/State/Zipcode Ph one Number [place] [address] [place], [place] [address] PATHOLOGY AND GENOMIC MEDICINE [facility] [address] [place] [address] [facility] * CT Renal Stone Protocol (01/21/2020 5:47 PM CDT) Specimen Narrative Performed At EXAMINATION: CT RENAL STONE PROTOCOL [facility] CLINICAL HISTORY: left flank pain TECHNIQUE: Multiple axial images of the abdomen were obtained without intravenous contrast with thin sections per renal stone protocol. Sagittal and coronal computerized reformatted images were also obtained. All CT images were acquired using radiation dose lowering technique with automated exposure control and / or iterative reconstruction. COMPARISON: No IMPRESSION: ABDOMEN Evaluation of solid abdominal organs is limited without IV contrast as this examination was tailored for evaluation of urinary tract calculi. 1.Nonobstructive left nephrolithiasis. No other urinary tract lithiasis, and no obstructive uropathy on either side. 2.Mild left renal edema and enlargement and perinephric stranding, which may indicate a recently passed stone or augie lonephritis. Kidneys otherwise grossly unremarkable without contrast. 3.Gallbladder contracted and not well s een. 4.No other incidental findings are dete cted PELVIS 1.Mild midline abdominal wall diastasis . No free fluid or definite lymphadenopathy detected in the abdomen or pelvis on this limited noncontrast study. 2.Uterus, adnexa and urinary bladder gr ossly unremarkable. 3.Bowel loops grossly unremarkable with out contrast. SUMMARY: Appearance of the left kidney may indic ate recently passed stone or pyelonephritis. [id number] Procedure Note Interface, Radiology Results Incoming - 01/21/2020 5:56 PM CDT EXAMINATION: CT RENAL STONE PROTOCOL CLINICAL HISTORY: left flank pain TECHNIQUE: Multiple axial images of the abdomen were obtained without intravenous contrast with thin sections per renal stone protocol. Sagittal and coronal computerized reformatted images were also obtained. All CT images were acquired using radiation dose lowering technique with automated exposure control and / or iterative reconstruction. COMPARISON: No IMPRESSION: ABDOMEN Evaluation of solid abdominal organs is limited without IV contrast as this examination was tailored for evaluation of urinary tract calculi. 1.Nonobstructive left nephrolithiasis. N o other urinary tract lithiasis, and no obstructive uropathy on either side. 2.Mild left renal edema and enlargement and perinephric stranding, which may indicate a recently passed stone or pyelonephritis. Kidneys otherwise grossly unremarkable without contrast. 3.Gallbladder contracted and not well se en. 4.No other incidental findings are detec jama PELVIS 1.Mild midline abdominal wall diastasis. No free fluid or definite lymphadenopathy detected in the abdomen or pelvis on this limited noncontrast study. 2.Uterus, adnexa and urinary bladder kamille ssly unremarkable. 3.Bowel loops grossly unremarkable witho ut contrast. SUMMARY: Appearance of the left kidney may indicate recently passed stone or pyelonephritis. [facility]-[id number] Performing Organization Address City/State/[facility] Ph one Number [facility] [address] [place] [address] * Smear review (01/21/2020 5:28 PM CDT) Platelet slide Increased (A) [facility] review [facility] Anisocytosis Moderate [facility] Polychromasia Moderate [facility] Ovalocytes Moderate [facility] Enlarged Moderate (A) [facility] platelets [facility] Specimen Performing Organization Address City/[facility] Ph one Number DEPARTMENT OF [address] [facility] [place] [address] PATHOLOGY AND GENOMIC [address] [facility] [address] [place] [address] [facility] * Urinalysis (01/21/2020 5:13 PM CDT) Glucose, UA Negative Negative [facility] Bilirubin, UA Negative Negative [facility] Ketones, UA Negative Negative [facility] Specific =>1.030 1.001 - 1.035 [facility] gravity, UA [facility] Blood, UA Small (A) Negative [facility] pH, UA 7.0 5.0 - 8.5 [facility] Protein, UA 3+ (A) Negative [facility] Urobilinogen, <2.0 <2.0 [facility] Nitrite, UA Negative Negative [facility] Leukocyte Small (A) Negative [facility] esterase, UA [facility] Color, UA Yellow [facility] Appearance, UA Sl Cloudy [facility] Specimen Urine Performing Organization Address City/State/Zipcode Ph one Number DEPARTMENT OF [address] [place] [address] PATHOLOGY AND GENOMIC [address] [facility] [address] [facility] [address] [place] [address] [facility] * hCG qualitative, urine screen (01/21/2020 5:13 PM CDT) hCG Negative [facility] qualitative, Comment: AMISH STOWE[facility] urine Sensitivity of HCG test: 25 EMERGENCY CARE mIU/mL CENTER Negative test results in patients suspected to be should be retested with a sample obtained 48-72 hours later, or by performing a quantitative assay. Specimen Urine Performing Organization Address [facility] [place] [address] PATHOLOGY AND GENOMIC [address] [facility] [address] [place] [address] [facility] after 03/08/2019 Insurance Type Payer Benefit Subscriber ID Effective Phone Address Plan / Dates Group HMO VIDES MCR REPLACEMENT VIDES xxxxxxxxxx 7-P DUAL resent OPTIONS STARPLUS MMP Exchange MISC EXCHANGE AMBETTER xxxxxxxxxxx 2019-P FROM resent [facility] [phone] KATIE yanez (Purdy) [place], [place] [address] Advance Directives For more information, please contact: [phone] Patient Machine Operator Picker Explanation Type Date Recorded Advance Directives, 02/19/2020 8:12 PM Living Will and Medical Power of It Service Delivery Manager
--- OUTSIDE RECORDS SUMMARY | 2020-03-08 16:49 | XMS REPORT | Summary of Care ---
Author JUAN Sanchez M.A. ne Organization Unknown Address Unknown Phone Unavailable Care Team Providers Care Vascular Technician Name Role Phone SHANNAN Dash, ISRA Unavailable Unavailable NORMA KELLEY, PARI Unavailable Unavailable SHANNAN KELLEY NM, ISRA Unavailable Unavailable [facility] Unavailable Martir PANDA MD NMALEXIA Unavailable Unavailable Functional Status Name Dates Details [...] left ankle pain (719.47, M25.572) Status: Active Pelvic congestion syndrome (625.5, N94.8 9) Status: Active Medications Name Dates Details predniSONE 10 MG Oral Tablet Active Plaquenil 200 MG Oral Tablet * Refills: 0 Active Tylenol CAPS * Refills: 0 Active Tacrolimus 1 MG Oral Capsule * Refills: 0 Active Omeprazole 40 MG Oral Capsule Delayed Release * Refills: 0 Active Lisinopril TABS * Refills: 0 Active Allergies and Adverse [...] History Name Dates Details Family history of colon cancer (V16.0, Z 80.0) Comments: Maternal Relatives Status: Active Name Dates Details Family history of malignant neoplasm of cervix uteri (V16.49, Z80.49) Status: Active Name Dates Details Family history [...] Status: Active Social History Name Dates Details Tobacco smoking consumption unknown (finding) Vital Signs Date Test Result Details [id number] Systolic blood pressure 143 mm[Hg] Status: Comments : Location: RUE; Position: Sitting Diastolic blood pressure 95 mm[Hg] Status: Comment s: Location: RUE; Position: Sitting Body height 61 in Status: Weight 174 lb Status: Body mass index (BMI) [Ratio] 32.88 kg/m2 Status: Body surface area Derived from formula 1.78 m2 S tatus: Body temperature 97.6 f Status: Comments: Me thod: Oral Heart Rate 121 /min Status: Results Date Description Value Details Results not documented Plan of Care Name Dates Details Planned Observations Planned Goals not documented Instructions Name Dates Details Instructions not documented Encounters Appointment; ALEXIA PANDA M.D. Encounter Diagnosis: Problem not documented On: 20-Feb-2019 15:45 Appointment; ALEXIA PANDA M.D. Encounter Diagnosis: Problem not documented On: 11-Mar-2019 16:30 Appointment; ISRA CAMPBELL M.D. Encounter Diagnosis: Problem not documented On: 27-Feb-2020 10:30
--- OUTSIDE RECORDS SUMMARY | 2020-03-08 16:49 | XMS REPORT | Clinical Summary ---
Author Author [facility] Address Unknown Phone Unavailable Care Team Providers Care Candle Wrapper Name Role Phone Pcp, No PCP Unavailable Allergies No Known Allergies Medications No known medications Active Problems Problem Noted Date Asthma 07/21/2014 Atypical chest pain 07/21/2014 Left sided abdominal pain 07/21/2014 Syncope 07/20/2014 Encounters Care Team Description Date Type Specialty [facility], unspecifie d headache type 03/31/2019 Hospital Magnetic Resonance Encounter Imaging Vimal Park MD Chronic intractable headache, unspecifie d headache type (Primary Dx) 03/17/2019 Outside Orders Central Scheduling Vimal Park MD 03/17/2019 Outside Orders Emergency Medicine after 03/08/2019 Immunizations Name Dates Previously Given Next Due Influenza TIV (IM) 07/21/2014 Family History Medical History Relation Name Comments Cancer Maternal Grandmother Cancer Mother Relation Name Status Comments Maternal Grandmother Mother Social History Date Tobacco Use Types Packs/Day Years Used Never Smoker Alcohol Use Drinks/Week oz/Week Comments No Sex Assigned at Date Recorded Not on file Industry Job Start Date Occupation Not on file Not on file Not on file Travel End Travel History Travel Start No recent travel history available. Last Filed Vital Signs Not on file Plan of Treatment Not on file Procedures Comments Procedure Name Priority Date/Time Associated Diag nosis MR BRAIN WITH & WITHOUT Routine 03/31/2019 Chroni c intractable IV CONTRAST 7:09 PM CDT headache, unspecifi ed headache type after 03/08/2019 Results * MR brain without & with IV contrast (03/31/2019 7:09 PM CDT) Specimen Narrative Performed At FINAL REPORT [facility] EXAMINATION: MRI of the brain HISTORY:Chronic intractable headache COMPARISON: None available TECHNIQUE:Sagittal T2; axial DWI, FLAIR , T1-IR, SWI; coronal FLAIR. Sagittal T1 ultrathin slice 3D CUBE wit h coronal and axial reformations. Intravenous contrast: 8 mLGadavist FINDINGS: Brain signal intensity: 1.No abnormal signal intensity. No abno rmal enhancement. 2.No mass or hemorrhage. No evidence of acute territorial vascular insult. Brain stem: Normal Vessels: Expected flow voids p resent in the major arteries and dural sinuses. Brain volume: Within normal li mits for age. Ventricles: Normal size, shape , and position. Craniocervical junction: Kristy l. Paranasal and mastoid sinuses: Clear Bones: Normal Sella turcica: No definite jessica lar or suprasellar mass IMPRESSION: No intracranial abnormalities. Signed: Vivien Everett MD Report Verified Date/Time: 07:17:27 Procedure Note Interface, External Ris In - 04/02/2019 7:19 AM CDT FINAL REPORT EXAMINATION: MRI of the brain HISTORY:Chronic intractable headache COMPARISON: None available TECHNIQUE:Sagittal T2; axial DWI, FLAIR, T1-IR, SWI; coronal FLAIR. Sagittal T1 ultrathin slice 3D CUBE with coronal and axial reformations. Intravenous contrast: 8 mL Gadavist FINDINGS: Brain signal intensity: 1.No abnormal signal intensity. No abnor mal enhancement. 2.No mass or hemorrhage. No evidence of acute territorial vascular insult. Brain stem: Normal Vessels: Expected flow voids present in the major arteries and dural sinuses. Brain volume: Within normal limits for age. Ventricles: Normal size, shape, and position. Craniocervical junction: Normal. Paranasal and mastoid sinuses: Clear Bones: Normal Sella turcica: No definite sellar or suprasellar mass IMPRESSION: No intracranial abnormalities. Signed: Vivien Everett MD Report Verified Date/Time: 04/02/2019 07:17:27 Performing Organization Address City/State/Zipcode Ph one Number GE RIS after 03/08/2019 Insurance Payer Benefit Subscriber ID Type Phone Address Plan / Group AMBETTER AMBETTER xxxxxxxxxxx SUPERIOR [id number] Advance Directives For more information, please contact: [address] [address] Date Inactivated Comments Code Status Date Activated 07/21/2014 9:26 PM Full Code 07/21/2014 1:27 AM This code status was determined by: Patient
[2020-03-08 18:14] LABS: BASOPHILS % 0.2 % (0.0-1.0); HEMATOCRIT 28.6 % (34.2-44.1); HEMOGLOBIN 7.7 g/dL (12.0-16.0); LYMPHOCYTES # (AUTO) 0.5 (1.0-3.2); LYMPHOCYTES % 4.3 % (18.0-39.1); MEAN CORPUSCULAR HGB CONC 26.9 g/dL (31-35); MEAN CORPUSCULAR VOLUME 63.3 fL (81-99); MONOCYTES # (AUTO) 0.2 (0.2-0.8); MONOCYTES % 1.7 % (4.4-11.3); NEUTROPHILS # (AUTO) 10.2 (2.1-6.9); NEUTROPHILS % 93.1 % (38.7-80.0); PLATELET COUNT 515 x10e3/uL (140-360); RED BLOOD COUNT 4.52 x10e6/uL (3.6-5.1); RED CELL DISTRIBUTION WIDTH 20.6 % (11.7-14.4)
[2020-03-08 18:36] LABS: ALANINE AMINOTRANSFERASE 17 IU/L (0-55); ALBUMIN 3.4 g/dL (3.5-5.0); ALBUMIN/GLOBULIN RATIO 0.9 (0.8-2.0); ALKALINE PHOSPHATASE 51 IU/L (40-150); ANION GAP 13.8 mmol/L (8-16); BLOOD UREA NITROGEN 12 mg/dL (7-26); BUN/CREATININE RATIO 17 (6-25); CALCIUM 8.5 mg/dL (8.4-10.2); CARBON DIOXIDE 20 mmol/L (22-29); CHLORIDE 109 mmol/L (98-107); CREATININE, SERUM 0.72 mg/dL (0.57-1.11); EST GLOMERULAR FILTRATION RATE > 60 ML/MIN (60-); GLUCOSE 124 mg/dL (74-118); POTASSIUM 3.8 mmol/L (3.5-5.1); SODIUM 139 mmol/L (136-145)
--- NOTE | 2020-03-08 19:19 | Emergency Department Note ---
History of Present Illnes History of Present Illness Chief Complaint: General Medicine Complaints History of Present Illness This is a 30 year old female with PMH of lupus presents to the ED for weakness and dizziness. Patient had labs done at [facility] which showed HgB levels of 7.9 Levels of 12.9 in 2017. Denies hematochezia or dysmenorrhea . Historian: Patient Arrival Mode: Car Onset (how long ago): week(s) (4) Onset quality: gradual Duration (how long): week(s) (4) Progression: worsening Chronicity: new Relieving factors: none Exacerbating factors: none Associated symptoms: weakness Treatments prior to arrival: none Past Medical/Family History Physician Review I have reviewed the patient's past medical and family history. Any updates have been documented here. Past Medical History Recent Fever: No Clinical Suspicion of Infectio: No New/Unexplained Change in Ment: No Past Medical History: Anemia, Lupus Other Medical History: fibromyalgia Past Surgical History: Other Surgery: kidney biopsies Social History Smoking Cessation: Never Smoker Alcohol Use: None Any Illegal Drug Use: No Review of Systems Review of Systems Constitutional: weakness EENTM: no symptoms Cardiovascular: no symptoms Respiratory: no symptoms Gastrointestinal: no symptoms Genitourinary: no symptoms Musculoskeletal: no symptoms Neurological: no symptoms Psychological: no symptoms Endocrine: no symptoms Hematological/Lymphatic: no symptoms Review of other systems All other systems reviewed and negative. Physical Exam Related Data Allergies: Coded Allergies: No Known Allergies (Unverified , 03/08/20) Triage Vital Signs Vital Signs Date Time Temp Pulse Resp B/P (MAP) Pulse Ox O2 Delivery O2 Flow Rate FiO2 03/08/20 17:15 97.8 123 18 142/88 100 Vital signs reviewed: Yes Physical Exam CONSTITUTIONAL Constitutional: well-developed, well-nourished HENT HENT: normocephalic, atraumatic, oropharynx clear/moist, nose normal HENT L/R: left ext ear normal, right ext ear normal EYES Eyes: PERRL, conjunctivae normal NECK Neck: ROM normal PULMONARY Pulmonary: effort normal, breath sounds normal CARDIOVASCULAR Cardiovascular: heart sounds normal, capillary refill normal, tachycardia GASTROINTESTINAL Abdominal: soft, nontender, bowel sounds normal GENITOURINARY Genitourinary: exam deferred SKIN Skin: warm, dry MUSCULOSKELETAL Musculoskeletal: ROM normal NEUROLOGICAL Neurological: alert, oriented x 3, no gross motor or sensory deficits PSYCHOLOGICAL Psychological: mood/affect normal, judgement normal Results Laboratory Result Diagram: 03/08/20 1753 03/08/20 1753 Laboratory Laboratory Tests Test 03/08/20 17:53 03/08/20 17:00 White Blood Count 10.98 x10e3/uL (4.8-10.8) Red Blood Count 4.52 x10e6/uL (3.6-5.1) Hemoglobin 7.7 g/dL (12.0-16.0) Hematocrit 28.6 % (34.2-44.1) Mean Corpuscular Volume 63.3 fL (81-99) Mean Corpuscular Hemoglobin 17.0 pg (28-32) Mean Corpuscular Hemoglobin Concent 26.9 g/dL (31-35) Red Cell Distribution Width 20.6 % (11.7-14.4) Platelet Count 515 x10e3/uL (140-360) Neutrophils (%) (Auto) 93.1 % (38.7-80.0) Lymphocytes (%) (Auto) 4.3 % (18.0-39.1) Monocytes (%) (Auto) 1.7 % (4.4-11.3) Eosinophils (%) (Auto) 0.0 % (0.0-6.0) Basophils (%) (Auto) 0.2 % (0.0-1.0) Neutrophils # (Auto) 10.2 (2.1-6.9) Lymphocytes # (Auto) 0.5 (1.0-3.2) Monocytes # (Auto) 0.2 (0.2-0.8) Eosinophils # (Auto) 0.0 (0.0-0.4) Basophils # (Auto) 0.0 (0.0-0.1) Absolute Immature Granulocyte (auto 0.08 x10e3/uL (0-0.1) Sodium Level 139 mmol/L (136-145) Potassium Level 3.8 mmol/L (3.5-5.1) Chloride Level 109 mmol/L (98-107) Carbon Dioxide Level 20 mmol/L (22-29) Anion Gap 13.8 mmol/L (8-16) Blood Urea Nitrogen 12 mg/dL (7-26) Creatinine 0.72 mg/dL (0.57-1.11) Estimat Glomerular Filtration Rate > 60 ML/MIN (60-) BUN/Creatinine Ratio 17 (6-25) Glucose Level 124 mg/dL (74-118) Calcium Level 8.5 mg/dL (8.4-10.2) Total Bilirubin 0.2 mg/dL (0.2-1.2) Aspartate Amino Transf (AST/SGOT) 13 IU/L (5-34) Alanine Aminotransferase (ALT/SGPT) 17 IU/L (0-55) Alkaline Phosphatase 51 IU/L (40-150) Total Protein 7.2 g/dL (6.5-8.1) Albumin 3.4 g/dL (3.5-5.0) Globulin 3.8 g/dL (2.3-3.5) Albumin/Globulin Ratio 0.9 (0.8-2.0) Urine Test Negative (NEGATIVE) Lab results reviewed: Yes Assessment & Plan Reassessment Reassessment time: 01:59 Reassessment Hemodynamics vastly improved s/p transfusion of 2 U pRBC's. Patient states that she is improving clinically. Assessment & Plan Final Impression: (1) Weakness (2) Anemia (3) Tachycardia Assessment & Plan Patient with symptomatic anemia which includes weakness, dizziness, and tachycardia. Patient given 2 units of pRBC's with marked improvement in symptoms Depart Disposition: HOME, SELF-CARE Last Vital Signs Date Time Temp Pulse Resp B/P (MAP) Pulse Ox O2 Delivery O2 Flow Rate FiO2 03/09/20 02:13 89 16 98 03/08/20 17:48 97.3 130/63 Date Time Temp Pulse Resp B/P (MAP) Pulse Ox O2 Delivery O2 Flow Rate FiO2 03/08/20 17:48 97.3 118 16 130/63 100 Medications in the ED Sodium Chloride 250 ml @ 0 mls/hr ONCE ONCE IV Last administered on 03/08/20at 23:20; Admin Dose 50 MLS/HR; Start 03/08/20 at 19:30; Stop 03/08/20 at 19:33; S tatus DC Sodium Chloride 250 ml @ ud STK-MED ONCE .ROUTE ; Start 03/08/20 at 23:20; Stop 03/08/20 at 23:15; Status DC LORIE PRESTON DO Mar 08, 2020 19:19
[2020-03-09 02:13] VITALS: BP 119/77
== END | disposition home or self-care (01) ==
LOC: ER 16:46
DX: R53.1 Weakness (principal); R42 Dizziness and giddiness; R00.0 Tachycardia, unspecified; D64.9 Anemia, unspecified; M32.9 Systemic lupus erythematosus, unspecified
CPT/HCPCS: 36415; 80053; 81025; 85025; 86850; 86900; 86920; 99284; J7050; P9016